=== PATIENT | male | born 1945 | race Caucasian/White ===

== ENCOUNTER 2019-03-21 10:00 | Outpatient (RCR) | payer OTHER, MEDICARE, SELFPAY ==
--- NOTE | 2019-01-23 13:47 | HP.PTEVAL ---
Patient's Visit Information PEACE JUSTICE III is a 73 year old M referred to Physical Therapy by MEEK CAMEJO with a diagnosis of Left Knee Pain. Date of Evaluation: 01/23/19 Physical Therapist: Mayte Yusuf DPT - Visit Plan Frequency: 2x /Week Duration: 4 Weeks Plan: Aquatics- Focus on LE and core s/s with balance for functional activities. - Subjective Findings: Patient reports that he has had x-rays of the Left knee- OA and floating pieces. His BMI is to high to have a TKR. He is working on loosing weight. Has a service dog who helps with balance and PTSD. His right knee has bothered him for 2 years- service injury and 2 pitts ago he took a fall in the snow and twisted the right knee. Since then its been progressively worse. He has OA in other parts of his body too. 6 months ago they desean fluid out- and put in a steroid injection- helped for about 3 months- but no lasting effects. Wears a brace which helped but the brace isn't helping anymore. Ordered a new brace and is hoping it helps. Pain is located on the medial knee pain- radiates to the outside of the hip. Describes the pain as sharp/shooting then dulls out. Worst: 8/10 Agg: driving, sitting to long Eases: moving it around Best: 0/10. Does have neuropathy so he has N/T. Sleep: disturbed- belly sleeper. No MRI but has had x-rays. Is not very active- has been working more with upper body- camp recreation specialist strength and 2# weight that he is working on sitting. PMhx/Meds: scanned in chart from [place]. - Objective Posture: FH, RS, increased kyphosis- pt is overweight. Gait: antalgic- decreased stance on the left LE with poor heel/toe pattern. HR/TR: able with UE A. SLS: unable does weight shift but is off balance immediatly. Palpation: tender to medial joint line. Flex: HS: severe, Gastroc: severe. ROM: 10-95 degrees. Strength: Ankle: 5/5,Knee: 4+/5, Hip: 4/5 throughout - Goals Goal 1:: Patient will be I with HEP and progression Goal Time Frame: 4-6 Weeks Goal 2:: Patient will asc/desc 8 recip with 1 HR Goal Time Frame: 4-6 Weeks Goal 3:: Patient will ambulate >300 feet with a normalized gait pattern and LRD Goal Time Frame: 4-6 Weeks Goal 4:: Patient will report 2/10 pain for 1 week Goal Time Frame: 4-6 Weeks - Rehabilitation Potential Physical Therapy Diagnosis: Patient presents with hypomobility- he has decreased ROM, strength, flex and muscular endurance leading to increased pain with ADL's. Rehabilitation Potential: Fair - Anticipated Interventions Patient/Client Instruction: Educate patient on: Benefits of Fitness Program Therapeutic Exercise to Include: Strength training, Balance training, Agility training, Body mechanics, Postural training, Flexibilty training, Gait and locomotor training, In an aquatic setting, Passive ROM, Active ROM, Dynamic Lumbar Stabilization For the Purpose of:: To improve muscle performance and motor function Thank you for the opportunity to evaluate your patient. For Medicare and Medicare HMO plans, please review the plan of care and approve it. It will need to be FAXED BACK to us at [phone] for Medicare purposes. For Medicare only, by signing this I certify the plan of care. Please let me know if there are questions or concerns regarding this plan of care. Physician Signature: Date:
--- NOTE | 2019-02-16 11:14 | HP.PTREVAL ---
MEEK CAMEJO, It has been my pleasure to treat PEACE JUSTICE III over the last 7 visits for Left Knee Pain. Please see the progress note below for an update on the physical therapy plan of care! Subjective: Patient reports that the knee is a little better- It feels good in the pool-the pain is along the inside of the knee and right below the bone chunk. Seems like he is using muscles that he is not use to using. It got him thinking more about this movement outside of the pool. Would like to continue to use the pool through PT and finish his visits. Sees the MD again after PT. Worst: 8/10 Best: 0/10. Objective/Function: Posture: FH, RS, increased kyphosis- pt is overweight. Gait: antalgic- decreased stance on the left LE with poor heel/toe pattern- AD of straight cane. HR/TR: able with UE A. SLS: unable does weight shift but is off balance immediatly. Palpation: tender to medial joint line. Flex: HS: moderate, Gastroc: moderate. ROM: 10-100 degrees. Strength: Ankle: 5/5,Knee: 4+/5, Hip: 4+/5 throughout Plan Plan: Continue with current POC additional 2x a week for 4 weeks. Progression with functional exercise. Goals Goal 1:: Patient will be I with HEP and progression Goal Time Frame: 4-6 Weeks Goal Progress: Progressing Goal 2:: Patient will asc/desc 8 recip with 1 HR Goal Time Frame: 4-6 Weeks Goal Progress: Progressing Goal 3:: Patient will ambulate >300 feet with a normalized gait pattern and LRD Goal Time Frame: 4-6 Weeks Goal Progress: Progressing Goal 4:: Patient will report 2/10 pain for 1 week Goal Time Frame: 4-6 Weeks Goal Progress: Progressing Anticipated Interventions Patient/Client Instruction: Educate patient on: Benefits of Fitness Program Therapeutic Exercise to Include: Strength training, Balance training, Agility training, Body mechanics, Postural training, Flexibilty training, Gait and locomotor training, In an aquatic setting, Passive ROM, Active ROM, Dynamic Lumbar Stabilization For the Purpose of:: To improve muscle performance and motor function Please do not hesitate to contact me at [phone] by phone or if you have questions or concerns regarding this new plan of care! Sincerely, Mayte Yusuf, DPT
--- NOTE | 2019-03-21 10:32 | HP.PTREVAL ---
MEEK CAMEJO, It has been my pleasure to treat PEACE JUSTICE III over the last 15 visits for Left Knee Pain. Please see the progress note below for an update on the physical therapy plan of care! Subjective: Patient reports that his knee was doing great until this morning. He reports that he gets around pretty good. He has no pain currently but had a 2/10 pain when walking back. When he got up it was a 6/10- lasted about 20 min. [facility] 15 [facility] are over-Is planning to use silver sneakers and a home program. Objective/Function: Posture: FH, RS, increased kyphosis- pt is overweight. Gait: antalgic- decreased stance on the left LE with poor heel/toe pattern- AD of straight cane for balance. HR/TR: able with UE A. SLS: unable does weight shift but is off balance immediatly. Palpation: tender to medial joint line. Flex: HS: moderate, Gastroc: moderate. ROM: 5-110 degrees. Strength: Ankle: 5/5,Knee: 5/5, Hip: 4+/5 throughout Plan Plan: Hold- attempting to get more visits from the [employer] Goals Goal 1:: Patient will be I with HEP and progression Goal Time Frame: 4-6 Weeks Goal Progress: Progressing Goal 2:: Patient will asc/desc 8 recip with 1 HR Goal Time Frame: 4-6 Weeks Goal Progress: Progressing Goal 3:: Patient will ambulate >300 feet with a normalized gait pattern and LRD Goal Time Frame: 4-6 Weeks Goal Progress: Progressing Goal 4:: Patient will report 2/10 pain for 1 week Goal Time Frame: 4-6 Weeks Goal Progress: Progressing Anticipated Interventions Patient/Client Instruction: Educate patient on: Benefits of Fitness Program Therapeutic Exercise to Include: Strength training, Balance training, Agility training, Body mechanics, Postural training, Flexibilty training, Gait and locomotor training, In an aquatic setting, Passive ROM, Active ROM, Dynamic Lumbar Stabilization For the Purpose of:: To improve muscle performance and motor function Please do not hesitate to contact me at [phone] by phone or if you have questions or concerns regarding this new plan of care! Sincerely, Mayte Yusuf DPT
--- NOTE | 2019-06-27 10:44 | HP.PT.NRP ---
PEACE JUSTICE III was seen in my office for initial evaluation on 01/23/19. The following Plan of Care was established for this patient: Initial Frequency: 2x /Week Initial Duration: 4 Weeks Patient/Client Instruction: Educate patient on: Benefits of Fitness Program Therapeutic Exercise to Include: Strength training, Balance training, Agility training, Body mechanics, Postural training, Flexibilty training, Gait and locomotor training, In an aquatic setting, Passive ROM, Active ROM, Dynamic Lumbar Stabilization For the Purpose of:: To improve muscle performance and motor function This patient was last seen in our office . Pertinent comments regarding their Physical therapy will appear below: At this point I will be discontinuing this patient from physical therapy. I would be happy to see this patient again in the future if found appropriate by the physician. Thank you! COLBY BorjasT
== END 2019-03-21 19:00 | disposition home or self-care (01) ==
LOC: PT 10:00
PROVIDERS: Family Provider Internal Medicine; PCP Internal Medicine
DX: M17.12 Unilateral primary osteoarthritis, left knee (principal)
CPT/HCPCS: 97113; 97161; 97164